=== PATIENT | male | born 1990 | race Caucasian/White ===

== ENCOUNTER 2025-06-17 06:35 | Emergency (ER) | payer SELFPAY ==
[2025-06-17 06:37] VITALS: BP 150/88
--- NOTE | 2025-06-17 07:14 | ED.GENMED ---
History of Present Illness
General
Chief Complaint: Abdominal Pain
Source: patient
Exam Limitations: none
Time Seen by Provider: 06/17/25 06:53
History of Present Illness
History of Present Illness:
34yoM with no significant past medical history presenting for evaluation of abdominal pain. Patient reports having upset stomach with nausea and decreased appetite over the past several days. His mother is currently ill so he thought this may be
related to stress. He started to experience worsening right sided abdominal pain last night. Pain made it difficult for him to sleep last night. He is worried that he may have some issue with his kidneys as his levels have been elevated in the
past. He denies any fevers, vomiting, diarrhea, constipation, difficulty urinating, shortness of breath. No previous abdominal surgeries.
Phy Exam
General Physical Exam
General Presentation: well appearing and no apparent distress
General age: appears stated age
General Skin: warm and dry
General Habitus: normal
General Mental: alert
ENT Exam
ENT Exam: normocephalic
Pulmonary Exam
Pulmonary Exam: no respiratory distress
Gastrointestinal Exam
Gastrointestinal Exam: soft, non distended and other (Mild tenderness to R mid abdomen. Abdomen soft, non-distended. No rebound or guarding.)
Neurological Exam
Neurological Exam: alert
Central Coma Scale
Eye Opening: Spontaneous
Verbal Response: Oriented
Motor Response: Obeys Commands
GCS Total Score: 15
Skin Exam
Skin Exam: normal color and warm/dry
Psychiatric Exam
Psychiatric Exam: normal mood/affect
Sepsis
Sepsis Screening
Sepsis Assessment: Sepsis Ruled Out
Sepsis Screen
Sepsis Screen: Sepsis Ruled Out
Date: 06/17/25
Time: 14:25
Course
Orders/Labs/Results
Orders:
Orders
06/17/25 07:14
CT Abd/pelvis W Iv Cont Urgent
Comment:
Reason For Exam: R sided abd pain
0.9% Sodium Chloride 1000 ml [Nss] 1,000 ml IV BOLUS
Ondansetron Injectable [Zofran] 4 mg IV NOW STA
06/17/25 07:23
Complete Blood Count/With Diff Urgent
Comprehensive Metabolic Panel Urgent
Lipase Urgent
06/17/25 08:00
Flush (0.9% Sodium Chloride) [Flush (Nss)] See Dose Instructions IV PER PROTOCOL
06/17/25 09:56
Crisis Consult Urgent
Reason for Consult: anxiety, resources
Abnormal Lab Results
06/17/25
07:23
Sodium 134 L mmol/L
(135-145)
Glucose 107 H mg/dl
(70-99)
06/17/25 07:23
06/17/25 07:23
Vital Signs
Initial and Last Documented VS:
Initial Vital Signs
Temp Pulse Resp BP Pulse Ox
98 F 66 20 150/88 98
06/17/25 06:37 06/17/25 06:37 06/17/25 06:37 06/17/25 06:37 06/17/25 06:37
Last Documented Vital Signs
Temp Pulse Resp BP Pulse Ox
98 F 66 20 133/65 98
06/17/25 06:37 06/17/25 06:37 06/17/25 06:37 06/17/25 08:00 06/17/25 08:45
MDM/Problems Addressed
Differential Diagnosis Includes:
34yoM here with R sided abd pain. Stomach upset/nausea x several days, worsening pain since last night. He is hypertensive with otherwise stable vitals. He is non-toxic appearing. No signs of peritonitis on abdominal exam. Differential diagnosis
includes but is not limited to: colitis, appendicitis, diverticulitis, biliary colic, kidney stone, constipation, musculoskeletal, nonspecific abdominal pain
Initial ED plan: Check abdominal labs, UA, and CT abdomen. IV Zofran and fluid bolus for symptoms.
*Pulse Oximetry
SaO2: 98
Oxygen Mode of Delivery: Room air
Patient hypoxic: no
*Critical Care Note
Total Time (30-74mins, 75-104mins- exclusive of procedures): Not Applicable
Update Note
Update Note:
Labs unremarkable including normal renal function, LFTs, and lipase. CT shows possible wall thickening of a loop of jejunum in the left lower abdomen suggesting possibility of enteritis although this does not correlate with his symptoms. Appendix
normal and there is no evidence of cholecystitis or ureterolithiasis. On reassessment, patient expresses that he believes his symptoms are related to anxiety. His mother is undergoing a breast biopsy today and he lost his job about a month ago.
His GI symptoms started at the same time that his mother became ill. Crisis evaluated patient and outpatient resources were provided. Prescriptions provided for Zofran and supportive care discussed. He was advised to follow-up with PCP and ED
return precautions reviewed. He was discharged in stable condition.
ED Attending Note
-
Portions of this chart may have been created with voice recognition software.� Occasional wrong word or��sound alike� substitutions may have occurred due to the inherent limitations of voice recognition software.
Discharge Plan
Departure
Patient Disposition: Home (Routine Discharge)
Date of Disposition: 06/17/25
Time of Disposition: 10:35
Patient with high blood pressure during this ER visit?: No
Discharge Problem:
Nonspecific abdominal pain, Nausea
Instructions: Abdominal Pain
Prescriptions:
New
ondansetron 4 mg tablet,disintegrating
4 mg PO Q6H PRN (Reason: nausea and vomiting) Qty: 20 0RF
Referrals:
[facility] [Provider Group]
[facility] [Outside]
[facility],* [Family Provider, Internal Medicine]
Activity Restrictions/Additional Instructions:
Take Zofran as needed for nausea. Eat a bland diet (bananas, rice, applesauce, toast).
Please follow-up with the outpatient mental health resources provided as well as a family doctor. Return to the ER with any new or worsening symptoms.
Interventions
Interventions:
*Risk Screen - Suicide Last Done: 06/17/25 06:37
*General Assessment Last Done: 06/17/25 07:20
*Neglect/Abuse Screening Last Done: 06/17/25 06:37
*ED- Fall Risk Assessment Last Done: 06/17/25 07:20
*ED COVID-19 Vaccine History Last Done: 06/17/25 07:20
*ED Influenza Vaccine History Last Done: 06/17/25 07:20
*Nursing Disposition Last Done: 06/17/25 11:21
CS-Ytaokq-Vqmthdbjvr Assessment Last Done: 06/17/25 07:20
Discharge Date and Time
Discharge Date/Time: 06/17/25 11:22
Print Language: GERMAN
[2025-06-17 07:20] VITALS: BMI 28.1
[2025-06-17 07:31] VITALS: BP 129/59
[2025-06-17 07:34] LABS: Hematocrit 43.7 % (39.0-52.0); Hemoglobin 15.7 g/dL (13.0-18.0); Mean Corp Hgb Conc. 35.9 g/dL (33.0-37.0); Mean Corpuscular Volume 81.8 fL (80.0-94.0); Nucleated Red Blood Cells % 0 % (-); Platelet Count 191 10^3/uL (130-400); Red Cell Dist. Width 12.1 % (11.5-14.5)
[2025-06-17] MEDS: ZOFRAN 4 MG IV (07:37)
[2025-06-17] MEDS: NSS 1000 IV (07:37)
[2025-06-17 08:00] VITALS: BP 133/65
[2025-06-17 08:04] LABS: ALT (SGPT) 30 U/L (0-50); AST (SGOT) 32 U/L (17-59); Albumin 4.7 g/dl (3.5-5.0); Alkaline Phosphatase 75 U/L (38-126); Blood Urea Nitrogen 11 mg/dl (9-20); Calcium 9.5 mg/dl (8.4-10.2); Carbon Dioxide 25 mmol/L (22-30); Chloride 100 mmol/L (98-107); Estimated Creatinine Clearance 87 ml/min; Glucose 107 mg/dl (70-99); Lipase 84 U/L (23-300); Potassium 3.7 mmol/L (3.5-5.1); Sodium 134 mmol/L (135-145); Total Protein 7.2 g/dl (6.3-8.2); eGFR > 60.00
== END 2025-06-17 11:22 | disposition home or self-care (01) ==
LOC: EMR 06:35
PROVIDERS: Physician Assistant; EMERGENCY PHYSICIAN Emergency Medicine
DX: R10.9 Unspecified abdominal pain (principal); R11.0 Nausea; Z56.0 Unemployment, unspecified
CPT/HCPCS: 96374; 96361; 99284; 74177; 80053; 83690; 85025; Q9967

== ENCOUNTER 2025-07-13 12:25 | Emergency (ER) | payer OTHER, SELFPAY ==
[2025-07-13 12:28] VITALS: BP 120/97
[2025-07-13 13:00] LABS: Hematocrit 48.1 % (39.0-52.0); Hemoglobin 16.8 g/dL (13.0-18.0); Mean Corp Hgb Conc. 34.9 g/dL (33.0-37.0); Mean Corpuscular Volume 85.1 fL (80.0-94.0); Nucleated Red Blood Cells % 0 % (-); Platelet Count 234 10^3/uL (130-400); Red Cell Dist. Width 12.8 % (11.5-14.5)
[2025-07-13 13:26] LABS: ALT (SGPT) 27 U/L (0-50); AST (SGOT) 30 U/L (17-59); Albumin 5.0 g/dl (3.5-5.0); Alkaline Phosphatase 68 U/L (38-126); Blood Urea Nitrogen 11 mg/dl (9-20); Calcium 9.8 mg/dl (8.4-10.2); Carbon Dioxide 29 mmol/L (22-30); Chloride 101 mmol/L (98-107); Glucose 103 mg/dl (70-99); Potassium 4.6 mmol/L (3.5-5.1); Sodium 136 mmol/L (135-145); Total Protein 7.5 g/dl (6.3-8.2); eGFR > 60.00
[2025-07-13 15:55] VITALS: BMI 26.4
--- NOTE | 2025-07-13 16:16 | ED.GENMED ---
History of Present Illness
General
Chief Complaint: Abdominal Pain
Source: patient
Time Seen by Provider: 07/13/25 15:47
History of Present Illness
History of Present Illness:
34-year-old male presenting to the emergency department for evaluation of a multitude of symptoms including generalized abdominal discomfort, diminished p.o. intake, anxiousness, night sweats, generalized fatigue and 'generally feeling unwell' over
the last few weeks and months. Patient was seen in this emergency department earlier in the month for similar, notes no real change in his symptoms and that the only other new symptom he has been experiencing is the intermittent night sweats. He
was seen and evaluated by the crisis staff and was provided with outpatient based information but he notes he never contacted anyone for follow-up. He believes majority of his symptoms are related to his mother being recently diagnosed with breast
cancer and that he has concern for himself having some type of cancerous pathology.
Past History
Past History
ED Past Medical History: None
ED Past Surgical History: Orthopedic
Social History
Tobacco: Non-smoker
Alcohol: Occasional
Drug: None
Personal: Single
Living: with family
Employment: Employed
Review of Systems
Review of Systems
All Other Systems: ROS reviewed and negative except as documented in HPI and ROS
Phy Exam
Physical Exam
Physical Exam:
GENERAL: Alert , in no apparent distress
EYE: clear conjunctiva b/l
HEAD: NCAT
ENT: o/p clr, mmm. No lymphadenopathy
CARDIAC: Regular rate and rhythm .
LUNGS: Clear breath sounds bilaterally, no acute respiratory distress, no wheezes/rales/rhonchi
ABDOMEN: Soft, without focal tenderness, no r/g, no cvat
NEUROLOGICAL: Alert and oriented
SKIN: Warm and dry, skin intact.
MUSCULOSKELETAL: No edema, well perfused.
PSYCH: Normal and appropriate interaction.
Scores
Heart Failure Risk
Heart Failure Risk Score: Not Applicable
Heart Score for Chest Pain Patients
STEMI patient?: Not applicable
Withdrawal Assessment of Alcohol
Withdrawal Assessment Completed?: Not applicable
Course
Orders/Labs/Results
Orders:
Orders
07/13/25 12:36
Complete Blood Count/With Diff Urgent
Comprehensive Metabolic Panel Urgent
Abnormal Lab Results
07/13/25
12:36
Glucose 103 H mg/dl
(70-99)
07/13/25 12:36
07/13/25 12:36
Vital Signs
Initial and Last Documented VS:
Initial Vital Signs
Temp Pulse Resp BP Pulse Ox
98.4 F 88 18 120/97 97
07/13/25 12:28 07/13/25 12:28 07/13/25 12:28 07/13/25 12:28 07/13/25 12:28
Last Documented Vital Signs
Temp Pulse Resp BP Pulse Ox
97.7 F 88 18 120/97 97
07/13/25 15:55 07/13/25 12:28 07/13/25 12:28 07/13/25 12:28 07/13/25 16:16
MDM/Problems Addressed
Differential Diagnosis Includes:
Anxiety/Stress
No concern for intra-abdominal pathology
I do not have concern for active cancerous process
MDM/Problems Addressed:
34-year-old male presenting to the ER for a multitude of nonspecific symptoms occurring over the last few months, worse over the last few weeks prompting him to come to the ER. He was most concerned for a cancerous process. Repeat labs were
initiated on arrival which are all reassuring. Ultimately patient is very well-appearing and in no acute distress and I do suspect most of his symptoms are related to stress and anxiety relating to his mother's recent cancerous diagnosis. I
encouraged patient to follow-up with his primary care provider as well as with the resources that were provided to him by our crisis staff here. I do not feel patient needs any further workup in the ER in light of his recent workup done here
earlier in the month as well.
*Pulse Oximetry
SaO2: 97
Oxygen Mode of Delivery: Room air
Patient hypoxic: no
*Critical Care Note
Total Time (30-74mins, 75-104mins- exclusive of procedures): Not Applicable
Data Reviewed
Review of Other/Old Records Reveals: Labs, Records and Radiology Studies
ED Attending Note
-
Portions of this chart may have been created with voice recognition software.� Occasional wrong word or��sound alike� substitutions may have occurred due to the inherent limitations of voice recognition software.
Discharge Plan
Departure
Patient Disposition: Home (Routine Discharge)
Date of Disposition: 07/13/25
Time of Disposition: 16:16
Patient with high blood pressure during this ER visit?: Yes
Discharge Problem:
Abdominal pain
Instructions: Abdominal Pain
Prescriptions:
No Action
ondansetron 4 mg tablet,disintegrating
4 mg PO Q6H PRN (Reason: nausea and vomiting) Qty: 20 0RF
Interventions
Interventions:
*Risk Screen - Suicide Last Done: 07/13/25 12:28
*General Assessment Last Done: 07/13/25 12:28
*Neglect/Abuse Screening Last Done: 07/13/25 12:28
NS-Bgwdri-Rnutolyxvs Assessment Last Done: 07/13/25 15:55
Discharge Date and Time
Print Language: SCOTTISH
== END 2025-07-13 16:56 | disposition home or self-care (01) ==
LOC: EMR 12:25
PROVIDERS: Emergency Medicine; EMERGENCY PHYSICIAN Student in an Organized Health Care Education/Training Program
DX: R10.84 Generalized abdominal pain (principal); R03.0 Elevated blood-pressure reading, without diagnosis of hypertension; Z63.79 Other stressful life events affecting family and household
CPT/HCPCS: 99283; 80053; 85025